=== PATIENT | male | born 1970 | race Caucasian/White ===

== ENCOUNTER 2025-04-15 12:53 | Emergency (ER) | payer MEDICAID, SELFPAY ==
[2025-04-15 13:01] VITALS: BP 163/113; BP 173/117; PULSE 85; RESP 18; TEMP 37.3; O2SAT 96; BMI 27.1
--- NOTE | 2025-04-15 13:21 | XR_ITS ---
Examination: CT brain head without contrast. 2-D sagittal coronal reconstructions Date and time of exam:April 15, 2025, 1352 hrs. Indications: Onset headache dizziness today CTDI: vol (mGy):5.35. DLP: (mGycm):1109. Technique: Multiple CT axial sections of the brain have been obtained, 5 mm slice thickness. Contrast has not been administered. 2-D sagittal, coronal reconstructions have been obtained Low dose protocols were performed. One or more of the following dose reduction techniques were used; automated exposure control, adjustment of the mA and/or KV according to patient size, use of iterative reconstruction technique. Findings: No significant ventricular enlargement. Intra-axial or extra-axial hemorrhage density is not seen. No mass effect or midline shift Basal cisterns are not remarkable. Fourth ventricle is midline. Cranial vault intact. Impression: Negative for acute hemorrhage, mass effect or midline shift Advise clinical correlation follow-up accordingly
--- NOTE | 2025-04-15 13:21 | EKG_ITS ---
[facility] Test Date: 2025-04-15 Pat Name: FRENCH WILSON Department: Room: - Gender: Male Qc Manager: : 1970 Requested By: Maddison Samano ([facility]) Eduarda Order Number: [id number] Reading MD: Maddison Samano ([facility]) Eduarda Measurements Intervals [place] Rate: 85 P: 84 WA: 153 QRS: 89 QRSD: 89 T: 73 QT: 334 QTc: 399 Interpretive Statements SINUS RHYTHM No previous ECG available for comparison /store/S0/[id number]/[id number].pdf
--- NOTE | 2025-04-15 13:21 | XR_ITS ---
Examination: AP chest single view Technique: AP portable semiupright chest single view Date and time: April 15, 2025, 1406 hrs. Comparison March 04, 2024 Indications: Shortness of breath beginning 3 days ago. Findings: No significant cardiac enlargement Stable nodule in the lower lung zone No interval pneumonia or pulmonary edema Impression: No interval pneumonia or pulmonary edema
--- NOTE | 2025-04-15 13:21 | PD.EDRME ---
Rapid Medical Screening Exam RME Arrival date/time: 04/15/25 12:53 This is a 54-year-old male who presents to the emergency department with complaints of dizziness and jaw pain. I have greeted and performed a focused initial assessment of this patient. Initial appropriate labs ordered at this time. A comprehensive ED assessment and evaluation of the patient and analysis of all test and completion of medical decision making process will be conducted by additional ED provider. Chief Complaint: Dizziness Time Seen by Provider: 04/15/25 13:14 Vital signs: Vital Signs Temperature 99.1 F 04/15/25 13:01 Pulse Rate 85 04/15/25 13:01 Respiratory Rate 18 04/15/25 13:01 Blood Pressure 163/113 H 04/15/25 13:01 Pulse Oximetry (%) 96 04/15/25 13:01 Oxygen Delivery Method Room Air 04/15/25 13:01
[2025-04-15 13:44] LABS: Collection Type, Urine Clean Catch; Squamous Epithelial Cell,Urine 0 /hpf (0-5)
[2025-04-15 13:57] VITALS: BP 160/101; PULSE 75; RESP 18; TEMP 36.9; O2SAT 97
[2025-04-15 13:57] LABS: Bilirubin,Urine Negative (Negative); Blood,Urine Negative (Negative); Clarity,Urine Clear (Clear/Hazy); Color,Urine Lt-Yellow (Lt Yel-Yel); Glucose, Urine Negative (Negative); Hyaline Casts,Urine < 1 /hpf (0-1); Ketones,Urine Negative (Negative); Leukocyte Esterase,Urine Negative (Negative); Nitrite,Urine Negative (Negative); PH,Urine 6.5 (5.0-7.0); Protein,Urine Negative (Neg - Trace); RBC,Urine < 1 /hpf (0-3); Specific Gravity,Urine 1.010 (1.001-1.035); Urobilinogen,Urine Negative mg/dL (0.0-1.0); WBC,Urine < 1 /hpf (0-5)
[2025-04-15 14:05] LABS: Amphetamine/Methamp Scrn,U Negative (Negative); Barbiturate Screen,Urine Negative (Negative); Benzodiazepines Screen,Urine Negative (Negative); Benzoylecgonine Screen, Ur Negative (Negative); Fentanyl Screen,Urine Negative (Negative); Opiate Screen,Urine Negative (Negative); THC Screen,Urine Negative (Negative)
--- NOTE | 2025-04-15 14:14 | EDNOTE_ITS ---
ED Dental RME/HPI General Chief complaint: Dizziness Stated complaint: Dizziness, possible tooth infection Time Seen by Provider: 04/15/25 13:14 Arrival date/time: 04/15/25 12:53 Limitations: no limitations RME / HPI RME / HPI Narrative: 04/15/25 12:53 This is a 54-year-old male who presents to the emergency department with complaints of dizziness and jaw pain. I have greeted and performed a focused initial assessment of this patient. Initial appropriate labs ordered at this time. A comprehensive ED assessment and evaluation of the patient and analysis of all test and completion of medical decision making process will be conducted by additional ED provider. DR. LOBATO MAIN ED EVALUATION: 54 year old male with past medical history of bronchitis/ asthma and dental problems presents to the Emergency Department with complaint of left jaw pain for 1 day. Associated symptoms include light-headedness and dizziness for the past 2 days. No known drug allergies except to penicillin. Symptoms may be associated with dental disease. Related Data Home Medications ?Medication ?Instructions ?Recorded ?Confirmed cholecalciferol (vitamin D3) 25 2,000 unit PO QDAY #0 tabs 04/08/16 mcg (1,000 unit) capsule (Vitamin D3) Previous Rx's ?Medication ?Instructions ?Recorded Hydrocodone/Acetaminophen * (NORCO 1 tab PO Q4H PRN pa in #20 tabs 04/08/16 5/325 *) levofloxacin 500 mg tablet 500 mg PO Q24H 7 days #10 t abs 04/15/25 Allergies Allergy/AdvReac Type Severity Reaction Status Date / Time aspirin Allergy Unknown LIVER Verified 04/15/25 12:58 PROBLEMS Penicillins Allergy Unknown UNKNOWN Verified 04/15/25 12:58 Review of Systems Review of Systems Systems Reviewed: All systems reviewed, normal except as documented Past Medical History Social History SMOKING STATUS: Never smoker SUBSTANCE USE: does not use ALCOHOL: Never Past Medical History Comments PMH COMMENT: Bronchitis/ asthma and dental problems. ED Exam General Limitations: Present no limitations General appearance: Present alert and in no apparent distress Head Head exam: Present atraumatic, normocephalic and other (left frontal sinus pressure and tenderness) Eye Eye exam: Present normal appearance, PERRL and EOMI; Absent nystagmus ENT ENT exam: Present normal exam, normal oropharynx and mucous membranes moist Expanded ENT Exam Teeth exam: Present gingival swelling (left upper oral gingivitis) Neck Neck exam: Present normal inspection, full ROM and trachea midline Chest Chest inspection: Present normal inspection and symmetric chest wall rise Respiratory Respiratory exam: Present normal lung sounds bilaterally Cardiovascular Cardiovascular exam: Present regular rate, normal rhythm and normal heart sounds Abdominal Exam Abdominal exam: Present soft and normal bowel sounds Extremities Exam Extremities exam: Present normal inspection and full ROM Back Exam Back exam: Present normal inspection and full ROM Neurological Exam Neurological exam: Present alert, oriented X3 and CN II-XII intact Psychiatric Psychiatric exam: Present normal affect and normal mood Skin Skin exam: Present warm, dry, intact and normal color Course Quality Measures none Orders Category Date Time Status Bedside Blood Glucose NOW Care 04/15/25 13:21 Active Control Analyst STAT Care 04/15/25 13:21 Active EKG (ED ONLY) *Do not use* NOW Care 04/15/25 13:[address] head/brain wo con Stat Exams 04/15/25 13:21 Completed EKG (ED Only) Stat Exams 04/15/25 13:21 Draft XR chest 1V portable Stat Exams 04/15/25 13:21 Completed CBC Stat Lab 04/15/25 13:21 Ordered Comprehensive Metabolic Panel Stat Lab 04/15/25 13:21 Ordered Drug Screen,Urine Stat Lab 04/15/25 13:38 Completed Lactate (Lactic Acid) Stat Lab 04/15/25 13:21 Ordered Prothrombin Time with INR Stat Lab 04/15/25 13:21 Ordered Troponin I Stat Lab 04/15/25 13:21 Ordered Urinalysis Stat Lab 04/15/25 13:38 Completed Vital Signs Vital signs: Vital Signs Temperature 99.1 F 04/15/25 13:01 Pulse Rate 85 04/15/25 13:01 Respiratory Rate 18 04/15/25 13:01 Blood Pressure 163/113 H 04/15/25 13:01 Pulse Oximetry (%) 96 04/15/25 13:01 Oxygen Delivery Method Room Air 04/15/25 13:01 Dental / Oral MDM Narrative MDM Narrative:: I, Eileen Reagan, am scribing for and in the presence of Dr. Lobato. Labs show no acute findings. Plan to discharge with sinusitis. Patient data External records reviewed:: [facility] previous records Clinical information provided by:: patient Social determinants that could affect healthcare access:: none Patient has the following chronic illnesses:: Bronchitis/ asthma and dental problems How is presenting disease/condition affected by chronic disease/condition?: exacerbated by Evaluation data The following diagnostics were reviewed and interpreted by me:: lab results, radiology exam(s) and EKG tracing(s) Lab and/or radiology exams considered but not ordered:: none Interpretation Summary: My interpretation: EKG performed at 1324 hours, sinus rhythm, rate 85, no acute changes, no STEMI Procedure(s): CT head/brain wo con Accession Number(s): [id number] cc: Lela Herbert NP; Franklyn Morrison MD; Jazmyne ([facility])Maddison~ Examination: CT brain head without contrast. 2-D sagittal coronal reconstructions Date and time of exam:April 15, 2025, 1352 hrs. Indications: Onset headache dizziness today CTDI: vol (mGy):5.35. DLP: (mGycm):1109. Technique: Multiple CT axial sections of the brain have been obtained, 5 mm slice thickness. Contrast has not been administered. 2-D sagittal, coronal reconstructions have been obtained Low dose protocols were performed. One or more of the following dose reduction techniques were used; automated exposure control, adjustment of the mA and/or KV according to patient size, use of iterative reconstruction technique. Findings: No significant ventricular enlargement. Intra-axial or extra-axial hemorrhage density is not seen. No mass effect or midline shift Basal cisterns are not remarkable. Fourth ventricle is midline. Cranial vault intact. Impression: Negative for acute hemorrhage, mass effect or midline shift Advise clinical correlation follow-up accordingly Dictated By: Franklyn Morrison MD Procedure(s): XR chest 1V portable Accession Number(s): [id number] cc: Lela Herbert NP; Franklyn Morrison MD; Jazmyne ([facility])Maddison~ Examination: AP chest single view Technique: AP portable semiupright chest single view Date and time: April 15, 2025, 1406 hrs. Comparison March 04, 2024 Indications: Shortness of breath beginning 3 days ago. Findings: No significant cardiac enlargement Stable nodule in the lower lung zone No interval pneumonia or pulmonary edema Impression: No interval pneumonia or pulmonary edema Dictated By: Franklyn Morrison MD Medications / Prescriptions Medications or Prescriptions considered but not ordered:: none Medication administrations:: see above if any Consultations Consultation(s) initiated? (list below): No Diagnosis Dental Differential Diagnosis: other (dental abscess, sinusitis, and early cellulitis) Most likely diagnosis given after review of the tests above:: Sinusitis Admission Indicated Admission indicated?: not indicated Admission Request Was there a request for admission?: No Disposition Plan Disposition Plan: Discharge Discharge Attestation Discharge Attestation: The patient and all family members were given an opportunity to ask questions and understood the discharge instructions. Discharge instructions specifically effects, indications for sooner follow up or return to the emergency department, and the expected course of current diagnosis. Patient condition: Stable Discharge Plan Plan Patient Disposition: HOME (Self Care) Patient condition on transfer: Stable Prescriptions/Referrals Prescriptions/Med Rec: New levofloxacin 500 mg tablet 500 mg PO Q24H 7 Days Qty: 10 0RF No Action cholecalciferol (vitamin D3) [Vitamin D3] 1,000 UNIT tablet 2,000 unit PO QDAY Qty: 0 Hydrocodone/Acetaminophen * (NORCO 5/325 *) 1 TAB tablet 1 tab PO Q4H PRN (Reason: pain) Qty: 20 0RF Referrals: Lela Herbert NP [Primary Care Provider] - In 1 week Problem List Clinical Impression: Sinusitis Patient/Caregiver Discharge Instructions Education Materials: ED Sinusitis (Antibiotic Treatment) Additional Instructions: Please follow-up with your primary care physician within 2-3 days. Return to the Emergency Department as needed. Print Language: Moldovan Stand Alone Forms: Melinda Award Info., Patient Portal Info Letter
== END 2025-04-15 15:06 | disposition home or self-care (01) ==
PROVIDERS: Nurse Practitioner Primary Care; Emergency Provider Family Medicine; PCP Nurse Practitioner
DX: J32.9 Chronic sinusitis, unspecified (principal); R06.02 Shortness of breath
CPT/HCPCS: 70450; 71045; 80053; 80307; 81001; 83605; 84484; 85025; 85610; 93005; 99283